=== PATIENT | female | born 1955 | race Caucasian/White ===

== ENCOUNTER 2019-01-04 07:41 | Day surgery (SDC) | payer OTHER ==
[~2019-01-04] VITALS: Ht 170.2 cm; Wt 84.8 kg
--- NOTE | ~2019-01-04 | H ---
[facility] [place] [address] HISTORY AND PHYSICAL Name: RENETTA GARCIA Room #: 130-P1 [facility] M..#: [id number] Admission: 01/04/19 Attend Phys: Abrahan Hastings MD Discharge: Date of : 59 Report #: [id number] THIS REPORT FOR: //name// CC: CAROLYN Hastings Physician staff DATE OF SERVICE: 01/04/2019 PREOPERATIVE DIAGNOSIS: Right ear antihelix lesion, probable chondrodermatitis. POSTOPERATIVE DIAGNOSIS: Right ear antihelix lesion, probable chondrodermatitis. OPERATIVE PROCEDURE: Excision with full thickness skin graft reconstruction with a local with intravenous sedation. DESCRIPTION OF PROCEDURE: The patient was taken to the operating room and placed in supine position. Local anesthesia was induced by subcutaneous infiltration of 1% lidocaine with 1:100,000 epinephrine. The patient was then prepared and draped in a sterile manner. The patient had a lesion on the antihelix of the right ear. This was excised with a clear margin down through cartilage to the opposite skin. The defect measured approximately 2 x 1.5 cm. I harvested a full thickness graft from the upper right neck down into the subcutaneous fat. The defect was closed with 4-0 Vicryl suture to the subcutaneous tissue and 5-0 Prolene suture to the skin. Then, I placed the full thickness graft to bridge the defect on the antihelix. I put small puncture holes through and then sewed into place with 3-0 silk suture leaving long ties for a bolus dressing. I placed a piece of Adaptic and then cotton on the graft and then tied into place with the long edges of the 3-0 silk. Blood loss was minimal. The patient was then taken to the recovery room in stable condition for postoperative monitoring. By: 1031 1040 Abrahan Hastings MD /nt
[~2019-01-04 07:41] MED LIST: ASPIR 8181 MG PO; FLUOXETINE HCL40 MG PO; FOLIC ACID1 MG PO; HYDROXYZINE PAM50 MG PO; LAMICTAL100 MG PO; LIPITOR40 MG PO; OLANZAPINE15 MG PO; OMEPRAZOLE40 MG PO; PRAZOSIN HCL1 MG PO; TYLENOL325 MG PO; VENTOLIN HFA 1818 GM INH; VITAMIN D1000 UNI1 PO; VITAMINC500 PO; ZOLPIDEM TARTRA10 MG PO
[2019-01-04 08:10] VITALS: BP 109/45
--- NOTE | 2019-01-04 10:32 | H ---
[facility] [place] [address] HISTORY AND PHYSICAL Name: RENETTA GARCIA Room #: 130-P1 [facility] M..#: [id number] Admission: 01/04/19 Attend Phys: Abrahan Hastings MD Discharge: Date of : 59 Report #: [id number] THIS REPORT FOR: //name// CC: CAROLYN Hastings Physician staff DATE OF SERVICE: 01/04/2019 PREOPERATIVE HISTORY AND PHYSICAL Her procedure is scheduled for 01/04/2019. HISTORY OF PRESENT ILLNESS: The patient has a lesion on the antihelix of her right ear that has been there at least 6 months. It has been treated with antibiotics, ointments, all over the last 6 months and it continues to persist. It is painful and she has trouble lying on it. PAST MEDICAL HISTORY: Otherwise, significant for asthma and migraine headaches. MEDICATIONS: I do not have a list of medications. ALLERGIES: She has no known drug allergies. PHYSICAL EXAMINATION: She has a crusted nodular lesion on the antihelix at the midportion of the right external ear. There was some surrounding inflammation of the skin. It is adherent to the underlying cartilage. 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 PLAN: Excision with full-thickness skin graft reconstruction. <ELECTRONICALLY SIGNED> By: Abrahan Hastings MD 01/04/19 1032 [id number] Abrahan Hastings MD /chito
[2019-01-04 11:06] VITALS: BP 109/45
--- NOTE | 2019-01-05 15:07 | PATH ---
[facility] [address] [place] [address] PATHOLOGY RPT PROCEDURE Name: LAURIE GARCIA David Room #: DEP [facility] [place].R.#: [id number] Admission: 01/04/19 Date of : 59 Discharge: 01/04/19 Report #: [id number] Path Case #: [id number] [facility] Accession Number: [id number] . 01 Material submitted: . ear - RIGHT EAR LESION. Modifiers: right . 01 Clinical history: . Right ear lesion . 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 - Negative for perineural invasion. - Margins of resection are free of malignancy. - Underlying cartilage showing reactive changes; negative for malignancy. . (IUV:mml; 01/05/2019) QLM 01/05/2019 1307 Local . 02 Electronically signed: . Kathryn Chavez MD, Pathologist NPI- [id number] . 01 Gross description: . The specimen is received in formalin, labeled "Laurie Garcia, right ear lesion". Received is irregular excision of skin with attached cartilage measuring 1.3 x 1.0 x 0.5 cm in greatest dimensions. The epidermal surface displays a well-circumscribed, flat and pink-red lesion measuring 0.4 x 0.3 cm. The surgical margin is inked. The specimen is sectioned into five pieces and entirely submitted in cassettes A1 and A2, with the apparent tips placed in cassette A2. (CAA; 01/04/2019) QAC/QAC 01/04/2019 1311 Local . 02 Pathologist provided ICD-10: C44.222 . 02 CPT . 347467 Specimen Comment: A courtesy copy of this report has been sent to Specimen Comment: [phone], . Specimen Comment: Report sent to / DR WINCHESTER Performed at: [address] [id number] [place] [address] PATHOLOGY RPT PROCEDURE Name: LAURIE GARCIA Room #: DEP OKRenetta Gomez#: [id number] Admission: 01/04/19 Date of : 59 Discharge: 01/04/19 Report #: [id number] Path Case #: [id number] MD Dereje Patel MD Phone: [phone] Performed at: [address] [id number] MD Kathryn Chavez MD Phone: [phone]
== END 2019-01-04 11:04 | disposition home or self-care (01) ==
LOC: OR 07:41 → PRE 07:42 → OR 10:56
DX: H93.8X1 Other specified disorders of right ear (principal); C44.222 Squamous cell carcinoma of skin of right ear and external auricular canal; E78.5 Hyperlipidemia, unspecified; J45.909 Unspecified asthma, uncomplicated; K21.9 Gastro-esophageal reflux disease without esophagitis; G47.30 Sleep apnea, unspecified; F41.9 Anxiety disorder, unspecified; F31.9 Bipolar disorder, unspecified; Z87.891 Personal history of nicotine dependence; Z90.49 Acquired absence of other specified parts of digestive tract; Z98.890 Other specified postprocedural states; Z79.899 Other long term (current) drug therapy
CPT/HCPCS: 15002; 50010; 50101; 50386; 50403; 56526; 56527; 56528; 62110; 62850; 70005